=== PATIENT | male | born 1935 | race Caucasian/White ===

== ENCOUNTER → 2020-01-01 | Outpatient (CLI) | payer MEDICARE ==
[~2020-01-01] MED LIST: CHOL10002 PO; FOLI1 PO; METO50 PO; ONDA4ODT PO; Omeprazole20 M1 PO; SULF500A PO; Simvastatin20 MG PO; TRAM50 PO; ZESTORETIC 20-121 EA PO
== END | disposition home or self-care (01) ==
LOC: LAB SHORT 07:27 → PLD 07:27
DX: C07 Malignant neoplasm of parotid gland (principal)
CPT/HCPCS: 88173

== ENCOUNTER → 2020-01-03 | Outpatient (CLI) | payer MEDICARE | END | disposition home or self-care (01) | LOC: PLD 08:22 → LAB SHORT 08:22 | DX: C07 Malignant neoplasm of parotid gland (principal) | CPT/HCPCS: 88305; 88341; 88342 ==

== ENCOUNTER 2020-01-22 09:44 | Inpatient (IN) | payer MEDICARE ==
[~2020-01-22] VITALS: Ht 188 cm; Wt 102.6 kg
[2020-01-22] MEDS ORDERED: AZULFIDINE500 MG PO (10:50)
--- NOTE | 2020-01-22 11:09 | NUR ---
PT ADMITTED TO [facility]. AGREES WITH PLANNED SURGERY. STATES NO CHLORHEXADINE SHOWER DONE HE WAS JUST CALLED THIS AM TO SCHEDULE SURGERY.
[2020-01-22 11:31] LABS: Anion Gap 6 mmol/L (6-16); Blood Urea Nitrogen 20 mg/dL (8-24); Bun/Creatinine Ratio 22.3 (12.0-20.0); CO2, Blood 26 mmol/L (21-32); Calcium, Blood 8.6 mg/dL (8.5-10.1); Chloride, Blood 103 mmol/L (98-108); Glomerular Filtration Rate >60 (60-); Glucose, Blood 116 mg/dL (70-99); Sodium, Blood 135 mmol/L (136-145)
--- NOTE | 2020-01-22 11:51 | NUR ---
REPORT TO BECKY HERNADEZ RN.
--- NOTE | 2020-01-22 13:50 | NUR ---
01/22/20 1350 Liat Moreno NO PREOP ANTIBIOTICS ORDERED
--- NOTE | 2020-01-22 19:30 | NUR ---
RECIVED HAND OFF FROM Manjula MURRELL RN USING SBAR. TRANSPORTED TO ROOM 230 VIA STRETCHER. TRANSFERED TO BED WITH FULL STAFF ASSISTANCE, TOLERATED WELL. AAO X3, SHANE, FOLLOWS ALL COMMNANDS. ORIENTED TO ROOM, CALL SYSTEM, AND POC, VOICES UNDERSTANDING. LEFT NECK INCISION NOTED STARTING FROM EAR TO SHOULDER. EDGES CLOSED WITH WOUND GLUE AND COVERED WITH TRIPLE ANTIBIOTIC OINTMENT. VERITO DRAINS X2 NOTED TO LEFT SIDE OF NECK. #1 IS SUPERIOR TO #2, RESPIRATIONS EVEN AND UNLABORED ON O2 AT 2L/NC. LUNG SOUNDS CLEAR BILATERALLY. ABDOMEN SOFT AND NONDISTENDED. BOWEL SOUNDS PRESENT IN ALL QUADS. RIGHT FA 18G PIV IS PATENT, FLUSHING WITH EASE. CONTINENT OF BOWEL AND BLADDER, USES URINAL AND AMBULATES TO BATHROOM FOR BM'S. SCD'S TO BLE. PAIN MANAGED AT THIS TIME. DENIES FURTHER NEEDSOR WANTS AT THIS TIME. SAFETY MEASURES IN PLACE. ADMISSION ASSESSMENT IN PROGRESS. WILL CONTINUE TO MONITOR.
--- NOTE | 2020-01-23 05:04 | NUR ---
SHIFT SUMMARY LYING IN SEMI FOWLERS WITH EYES OPEN WHILE WATCHING TV. INCISION TO LEFT NECK IS STILL C/D/I. PAIN MANAGED WITH PRN PAIN MEDS PER EMAR. VERITO DRAINS #1 AND #2 ARE PATENT, DRAINING SEROGANGUINEOUS FLUID TO DEPRESSED BULB. AMBULATED TO COMMODE FOR BM, BUT WAS UNABLE TO GET RESULTS. DENIES FURTHER NEEDS OR WANTS AT THIS TIME. SAFETY MEASURES IN PLACE. WILL GIVE HAND OFF TO ONCOMING SHIFT USING SBAR DURING BEDSIDE REPORT.
--- NOTE | 2020-01-23 10:09 | NUR ---
NO GLASER CATH NOTED THIS AM, PT USING URINAL TO VOID, VOIDING DARK KRISTAL URINE.
[2020-01-23] MEDS ORDERED: OXYC5 PO (14:18)
[2020-01-23] MEDS ORDERED: PROM25 PO (14:18)
[2020-01-23] MEDS ORDERED: DOCU100 PO (14:20)
--- NOTE | 2020-01-23 15:09 | NUR ---
DC INSTRUCTIONS GIVEN, VERBALIZED UNDERSTANDING, INSTRUCTIONS GIVEN ON HOW TO CARE FOR VERITO DRAIN, PT'S DAUGHTER STATES SHE AND HER ARE FAMILIAR WITH VERITO DRAINS FROM HER MASTECTOMY AND FEEL CONFIDENT ABOUT TAKING CARE OF HER DAD'S VERITO DRAIN AT HOME.
== END 2020-01-23 15:25 | disposition home or self-care (01) | DRG 829 ==
LOC: ORSCMMR 09:44 → ORD 12:00 → ORSCMMR 18:21 → SURS 18:21 → ORSCMMR 19:30 → SURS 01-23 15:25
PROVIDERS: ADMIT Otolaryngology
PROC: 0CT90ZZ Resection of Left Parotid Gland, Open Approach (ICD-10-PCS; principal; 2020-01-22 12:00)
DX: C79.89 Secondary malignant neoplasm of other specified sites (principal); K51.90 Ulcerative colitis, unspecified, without complications; I10 Essential (primary) hypertension; E78.5 Hyperlipidemia, unspecified; I25.10 Atherosclerotic heart disease of native coronary artery without angina pectoris; E11.9 Type 2 diabetes mellitus without complications; Z87.891 Personal history of nicotine dependence; Z85.51 Personal history of malignant neoplasm of bladder
CPT/HCPCS: 80048; 82947; 88305; 88307; 93005; 93010; A9270-GY; J0171; J0330; J1100; J1644; J1885; J2370; J2405; J2704; J3010; J7120

== ENCOUNTER 2022-01-23 13:13 | Observation (INO) | payer MEDICARE ==
[~2022-01-23] VITALS: Ht 185.4 cm; Wt 90.7 kg
[~2022-01-23 13:13] MED LIST changes: +AZULFIDINE500 MG PO; +DOCU100 PO; +OXYC5 PO; +PROM25 PO
[2022-01-23] MEDS ORDERED: SULFASALAZINE PO (14:14)
[2022-01-23] MEDS ORDERED: LISI20 PO (14:14)
[2022-01-23 14:27] LABS: BASOPHILS ABSOLUTE AUTO 0.02 K/mm3 (0.00-0.23); BASOPHILS PERCENT AUTO 1 % (0-2); EOSINOPHILS ABSOLUTE AUTO 0.02 K/mm3 (0.00-0.68); EOSINOPHILS PERCENT AUTO 1 % (0-6); Hematocrit 33.7 % (37.0-53.0); Hemoglobin 11.4 g/dL (13.5-17.5); IMMATURE GRAN ABSOLUTE AUTO 0.01 K/mm3 (0.00-0.10); IMMATURE GRAN PERCENT AUTO 0 % (0-1); LYMPHOCYTES ABSOLUTE AUTO 0.56 K/mm3 (0.84-5.20); LYMPHOCYTES PERCENT AUTO 17 % (21-46); MONOCYTES ABSOLUTE AUTO 0.67 K/mm3 (0.16-1.47); MONOCYTES PERCENT AUTO 20 % (4-13); Mean Corpuscular HGB 34.8 pg (26.0-34.0); Mean Corpuscular HGB Conc 33.8 g/dL (31.5-36.5); Mean Corpuscular Volume 103 fL (80-100); Mean Platelet Volume 9.5 fL (9.1-12.4); NEUTROPHILS ABSOLUTE AUTO 2.01 K/mm3 (1.96-9.15); NEUTROPHILS PERCENT AUTO 61 % (41-73); Platelet Count 106 K/mm3 (150-400); RDW Coefficient Variation 13.6 % (11.7-14.2); RDW Standard Deviation 51.1 fL (35.1-46.3); Red Blood Cell Count 3.28 M/mm3 (4.30-5.90); White Blood Cell Count 3.29 K/mm3 (4.00-11.30)
[2022-01-23 14:42] LABS: Alanine Aminotransfer (ALT/SGP 10 U/L (12-78); Albumin, Blood 2.9 g/dL (3.4-5.0); Albumin/Globulin Ratio 0.7 (0.8-1.8); Alk Phos 100 U/L (50-136); Anion Gap 2 mmol/L (6-16); Aspartate Aminotrans (AST/SGOT 21 U/L (12-37); Bilirubin, Total 0.7 mg/dL (0.1-1.0); Blood Urea Nitrogen 26 mg/dL (8-24); CO2, Blood 29 mmol/L (21-32); Calcium, Blood 8.7 mg/dL (8.5-10.1); Chloride, Blood 105 mmol/L (98-108); Creatinine, Blood 0.76 mg/dL (0.60-1.20); Globulin, Blood 3.9 g/dL (2.2-4.0); Glomerular Filtration Rate >60 (60-); Glucose, Blood 131 mg/dL (70-99); Potassium, Blood 3.8 mmol/L (3.5-5.5); Sodium, Blood 136 mmol/L (136-145); Total Protein, Blood 6.8 g/dL (6.4-8.2)
--- NOTE | 2022-01-23 15:43 | NUR ---
ED Palliative Care Consult Spoke with Dr Banerjee and discussed case. 86 year old male to the ED with confusion and neuro symptoms. Pt has Metastatic Melanoma with CT scan showing significant mass in the brain. Son in law at bedside and is agreeable to consider hospice. Pt resting on gurney upon arrival, confused and delusional. Pt states "what are you doing here, please don't hurt me". Son in law Mina at bedside. Engaged in therapeutic conversation regarding goals of care. Mina reports Pt lives at home with him and Pt's daughter (Mina's ). Mina reports his is bedbound and he is her primary caregiver and Pt's primary caregiver. Mina reports Pt's confusion is new and is struggling with providing care for his and Pt. He reports Pt requires assistance with bathing, dressing, is incontinent of bowel and bladder, and is mostly bedbound. He reports Pt is a 2 person assist for transfers and does not ambulate. Mina reports his son is available once in a while to help but not often. Pt still has a good appetite. Mina reports needing a hospital bed for Pt. He reports Pt does not want his cancer treated. Educated on hospice philosophy with V/U made by. Mina reports he and Pt's daughter Jewell are agreeable to hospice services. He reports not being comfortable with bringing Pt home until hospice servies are set up. Mina does verbalize understanding that hospice is able to provide caregiver support. Discussed hospice agencies to choose from with Mina reporting [facility] as primary choice. Discussed the importance of starting [facility] process as soon as possible for Pt as Pt does not have any income. Mina reports his is established with [facility] and is familiar with the process. Mina request that Pt be admitted for comfort care until hospice services can be arranged and equipment can be delivered. No other concerns reported at this time. Spoke with ED Test Borer Helper Jag and discussed case. Spoke with Dr Banerjee and relayed family's agreement for hospice and discussed family's concerns. Dr Banerjee will consider appropriateness for admission until hospice services can be arranged. Spoke with [facility] Liason Ailyn Del Rosario and discussed case. Ailyn will start hospice screening for admission onto services for Wednesday. PPS 30% [place] 40% ADLs 5/6 Palliative Care will remain available.
--- NOTE | 2022-01-23 15:59 | NUR ---
Received referral from Palliative Care Nurse (Hussain Aj) on 01/23/2022. Patient is to discharge with orders for hospice and family elected [facility]. Gathered supporting documentation for referral (face sheet, labs, imaging, and progress notes) and sent to [facility] oncology account specialist (Jerald Sharma) for review of hospice appropriateness and ability to accept patient onto service post discharge. Will await further information from hospice oncology account specialist regarding the above. Ailyn Del Rosario Referral Liaison
--- NOTE | 2022-01-23 16:50 | NUR ---
Received notification from [facility] tenter feeder (Jerald Sharma) that patient is hospice appropriate and able to be accepted onto service post discharge. At this time it is not known if patient will be admitted to [facility] or discharged home from the ED ema. Will continue to monitor and follow for discharge. Ailyn Del Rosario Referral Liaison
--- NOTE | 2022-01-24 03:51 | NUR ---
2005: PT ARRIVED AT THE MEDICAL FLOOR UNIT AT ROOM 309. ALERT ORIENTED X1-2. APPEARS TO HAVE GARBLED SPEECH, NONSENSICAL. PT UNABLE TO FIND WORDS TO EXPRESS HIS NEEDS AT TIMES. VSS. ATTENDS CHANGED IN PLACE. GLASER IN PLACED. PT HAD PUDDING AND MARLENE. ABLE TO SWALLOW WITHOUT DIFFICULTIES. DENIES PAIN. CALL LIGHT WITHIN REACH. WILL CONTNUE TO MONITOR.
--- NOTE | 2022-01-24 04:10 | NUR ---
SHIFT SUMMARY PT ADMITTED FOR R SIDE WEAKNESS, GARBLED SPEECH AND NONSENSICAL FOR POSSIBLE STROKE. PT HAD A HARD TIME EXPRESSING HIS NEED, BUT WAS ABLE TO CONVEY THAT HE WAS HUNGRY. CALL SON-FAIZAN ABOUT ANY SWALLOWING PRECAUTIONS AND UPDATE REGARDING PT. PT WILL BE ON SOFT BITE SIZE DIET. MEDS WHOLE AT HOME. PT HAS BEEN BEDBOUND FOR THE PAST 2 WEEKS. DETERIORATING/DECONDITIONED. BEDREST FOR TONIGHT. PT ON COMFORT CARE MANAGEMENT IN TRANSITION TO ENROLLMENT TO HOSPICE. VSS. GLASER IN PLACED. REPOSITIONED EVERY 2 HOURS. APPEARS TO HAVE A LUMP ON L UPPER TIGHT. LUNGS ARE DIMINISHED. CALL LIGHT WITHIN REACH. WILL CONTINUE TO MONITOR PT AND PROVIDE REPORT TO ONCOMING NURSE.
--- NOTE | 2022-01-24 09:03 | NUR ---
pt laying in bed with eyes open, janitorial cleaner attempting to obtain b/p, pt is a bit aggitated and attempting to get oob, not redirectable, or able to follow any commands, he has word salad, lungs are clear dim in bases, on r/a, resp even and unlabored, no cough noted, hrr, +1 edema noted to b/l le, pp faint, cap refill <3sec, vs stable, afebrile, iv site to lfa field start, site is clear and patent, btx4, abd flat soft nontender, nelson cath draining clear yellow urine, skin c/w/d, frail, will keep pt on bed rest at this time, moves himself in bed, and did bring his legs over the side of the bed, bed alarm is activated, yuniel, call light in reach.
--- NOTE | 2022-01-24 18:28 | NUR ---
pt woke easily for dinner, leather sprayer assisted with eating, he was laughing, but unable to understand what he is saying with word salad, he did eat a bit, but doesn't follow any intructions. has slept a lot today, no further changes this shift. call light in reach.
--- NOTE | 2022-01-25 03:37 | NUR ---
SHIFT SUMMARY NO ACUTE CHANGES OVERNIGHT. PT IS ALERT BUT VERY CONFUSED, UNABLE TO PUT WORDS TOGETHER, GARBLED AND HAS WORD SALAD. PT HAS BEEN PLEASANT AND CALM. DOES NOT FOLLOW COMMANDS. REPOSITIONED Q2. GLASER INTACT, PATENT AND OFF FLOOR. PT APPEARS TO HAVE DARK YELLOW URINE. ENC AND OFFERED ORAL PO INTAKE. PT IS A FEEDER, NEEDS ASSISTANCE WITH EATING/DRINKING. ATTENDS IN PLACE, INCONTINENT WITH BM, PT HAD 1 BM. CALL LIGHT WITHIN REACH. BED IN LOW POSITION, BED ALARM ON FOR SAFETY. WILL PROVIDE REPORT TO ONCOMING NURSE. PLAN:PT TRANSITION TO HOSPICE FOR DISCHARGE.
--- NOTE | 2022-01-25 09:00 | NUR ---
pt laying in bed awake alert, confused, oriented to self only, unable to follow commands or participate in assessment, garbled nonsensical speech, is eating soft foods without diff, crushed medication in yogurt, lungs are clear t/o, on r/a, resp even and unlabored, no cough noted, hrr, trace edema noted to b/l le, ppp+2, cap refill<3sec, vs stable, afebrile, , btx4, abd flat soft nontender, incont of bowel and bladder, attends in place, skin is frail with some bruising but intact, maew, weak, yuniel, call light in reach.
--- NOTE | 2022-01-25 10:20 | NUR ---
pt crying, Dr. Corrales in to see him, she asked to give pain meds as he could be in pain, this was done. pt resting with eyes closed, call light in reach.
--- NOTE | 2022-01-25 18:03 | NUR ---
pt has had a quiet day today until about 1729, he is aggitated, and wont take anything from nurse, pulling blankets and gown off, did get him changed, but is swiping at staff. continues with word salad, call light in reach, watching tv at this time.
--- NOTE | 2022-01-26 07:49 | NUR ---
SHIFT SUMMARY NO ACUTE CHANGES OVERNIGHT. PT USED INHALER X1 T/O SHIFT. REPORTS PAIN IN HIS FEET, MANAGED WITH TYLENOL AND NORCO. AOX4. VSS. PT DENIES CP, SOB. REPORTS CHRONIC NUMBNESS IN BLE. CALL LIGHT WITHIN REACH. REPORT GIVEN TO DAY SHIFT NURSE.
--- NOTE | 2022-01-26 08:01 | NUR ---
SHIFT SUMMARY NO ACUTE CHANGES OVERNIGHT. PT IS STILL CONFUSE BUT ABLE TO SAY "I AM HUNGRY" AND "I WANT MY HEAD UP". ALTHOUGH HE REFUSE CARE AND WAS AGITATED AT THE BEGINNING OF THE SHIFT. HE WAS PLEASANT AFTER HE WAS FED THIS MORNING. VSS. GLASER PATENT AND OFF FLOOR. ATTENDS IN PLACE FOR BM INCONTINENT. CALL LIGHT WITHIN [facility]. REPORT GIVEN TO AM NURSE.
--- NOTE | 2022-01-26 08:42 | NUR ---
BEGIN SHIFT RECEIVED REPORT, ASSUMED CARE OF PT. INFORMED BY CASE MANAGAMENT PT WILL BE LEAVING TODAY AT 11:00 WITH HOSPICE VIA AMBULANCE.
[2022-01-26] MEDS ORDERED: ACET325 PO (11:04)
[2022-01-26] MEDS ORDERED: DECADRON4 M1 PO (11:04)
[2022-01-26] MEDS ORDERED: LORA2L PO (11:05)
[2022-01-26] MEDS ORDERED: PROM25 PO (11:09)
[2022-01-26] MEDS ORDERED: MORP20L PO (11:09)
--- NOTE | 2022-01-26 11:28 | NUR ---
DC HOME HOSPICE ATTEMPTED TO MEDICATE BEFORE TRANSFER TO HOME WITH HOSPICE. PT REFUSED THE ATIVAN BY SPITTING IT OUT & HE REFUSED TO SWALLOW HIS DECADRON & 325 MG OF THE 650 MG TYLENOL. WAS ABLE TO GIVE HIM 1 TAB OF THE 325 MG TYLENOLIN APPLESAUCE. ALL PERSONAL BELONGINGS SENT HOME WITH PT. HIS SON HAS ALREADY PICKED UP HIS DC MEDS FROM HIS PREFERRED PHARMACY. NO IV TO DC. WENT HOME WITH GLASER CATHETER. [facility] TRANSPORT TO HOME.
--- NOTE | 2022-01-26 12:27 | NUR ---
Patient is to discharge at 1100 with orders for hospice. Contacted [facility] ([facility]) to arrange gurney transport to patient's residence. Pick-up at 1100 will be provided by the above. Faxed copy of face sheet, PCS form, and DNR status to [facility] office per protocol. Placed copies of the above in nurse banquet food server for patient transportation driver. Notified nurse eye care professional (Fidelia Long), [facility] (Meme Wagner), Charge RNs (Jewell Hanna and Jhoana Huerta), and bedside RN (Jennifer Pimentel) of the above. All are agreeable to the above. Requested discharge orders from hospitalist (Dr. Estrada). Provided hard copy prescriptions for morphine 20mg/mL #30mL (0.25mL - 1mL PO/SL Q1H PRN SOB/pain), lorazepam 0.5mg #20 (1 - 2 PO Q4H PRN anxiety), and hyoscyamine 0.125mg SL tablets #30 (1 SL Q2H PRN secretions) to patient's son-in-law (Mina Arizmendi) on Wednesday- 01/23/2022. Wrote order for DME (hospital bed, full rails, over bed table, walker, and wheelchair) and sent to [facility] for delivery on Wednesday- 01/26/2022. Faxed copies of discharge order and med list to [facility] tax map technician. No further interventions required. Ailyn Del Rosario Referral Liaison
== END 2022-01-26 11:15 | disposition hospice, home (50) ==
LOC: ER 13:13 → MEDS 18:52
PROVIDERS: Emergency Medicine; ADMIT Internal Medicine
DX: C79.31 Secondary malignant neoplasm of brain (principal); C79.2 Secondary malignant neoplasm of skin; I10 Essential (primary) hypertension; E11.9 Type 2 diabetes mellitus without complications; E78.5 Hyperlipidemia, unspecified; I25.10 Atherosclerotic heart disease of native coronary artery without angina pectoris; R60.9 Edema, unspecified; I44.4 Left anterior fascicular block; Z66 Do not resuscitate; Z88.5 Allergy status to narcotic agent
CPT/HCPCS: 70470; 80053; 85025; 93005; 93010; 96374-59; 99285-25; A9270; G0378; J1100; Q9967